=== PATIENT | male | born 1945 | race Two or more races ===

== ENCOUNTER 2017-08-17 13:15 | Emergency (ER) | payer OTHER ==
[~2017-08-17] VITALS: Ht 177.8 cm; Wt 98.4 kg
[~2017-08-17 13:15] MED LIST: LISINOPRIL5 MG
[2017-08-17] MEDS ORDERED: DICLOFENAC SODI50 MG PO (13:55)
== END 2017-08-17 14:02 | disposition home or self-care (01) ==
LOC: ER 13:15
DX: R07.89 Other chest pain (principal)

== ENCOUNTER 2017-11-16 08:24 | Outpatient (CLI) | payer OTHER ==
[~2017-11-16 08:24] MED LIST changes: +DICLOFENAC SODI50 MG PO
== END 2017-11-16 08:33 | disposition home or self-care (01) ==
LOC: RAD 08:24
DX: Z01.811 Encounter for preprocedural respiratory examination (principal)

== ENCOUNTER 2018-06-07 08:44 | Emergency (ER) | payer OTHER ==
[~2018-06-07] VITALS: Ht 188 cm; Wt 88.5 kg
== END 2018-06-07 12:43 | disposition home or self-care (01) ==
LOC: ER 08:44 → EDSEX 09:04 → ER 12:43
DX: K21.9 Gastro-esophageal reflux disease without esophagitis (principal)

== ENCOUNTER 2018-10-02 08:06 | Emergency (ER) | payer OTHER ==
[~2018-10-02] VITALS: Ht 177.8 cm; Wt 95.3 kg
== END 2018-10-02 10:26 | disposition home or self-care (01) ==
LOC: ER 08:06
DX: R10.13 Epigastric pain (principal)

== ENCOUNTER 2019-01-29 07:17 | Emergency (ER) | payer OTHER ==
[~2019-01-29] VITALS: Ht 177.8 cm; Wt 88.5 kg
[2019-01-29] MEDS ORDERED: ADVAIR HFA 230/12 GM (07:35)
[2019-01-29] MEDS ORDERED: CIMETIDINE400 MG (07:37)
[2019-01-29] MEDS ORDERED: [UNRECOGNIZED DRUG - CODE] (07:37)
== END 2019-01-29 09:23 | disposition home or self-care (01) ==
LOC: ER 07:17
DX: K20.8 Other esophagitis (principal); F06.4 Anxiety disorder due to known physiological condition

== ENCOUNTER 2021-10-15 19:15 | Emergency (ER) | payer OTHER ==
[~2021-10-15] VITALS: Ht 177.8 cm; Wt 104.3 kg
[~2021-10-15 19:15] MED LIST changes: +ADVAIR HFA 230/12 GM; +CIMETIDINE400 MG; +[UNRECOGNIZED DRUG - CODE]
[2021-10-15] MEDS ORDERED: ZESTRIL40 M1 PO (19:28)
[2021-10-16] MEDS ORDERED: PEPCID40 MG PO (04:19)
[2021-10-16] MEDS ORDERED: ONDANSETRON ODT4 MG PO (04:20)
== END 2021-10-16 04:29 ==
LOC: ER 19:15
DX: K29.70 Gastritis, unspecified, without bleeding (principal); R10.13 Epigastric pain; I10 Essential (primary) hypertension